=== PATIENT | male | born 1955 | race Caucasian/White ===

== ENCOUNTER 2016-04-11 19:14 | Emergency (ER) | payer MEDICARE ==
[2016-04-11 19:25] VITALS: BP 132/72
--- NOTE | 2016-04-11 20:01 | ED ---
Head Injury - HPI Summary HPI Summary: Patient presents to the ED after sustaining a mechanical fall on the ice about 12 hours ago and striking the back of his head on cement steps. He states he felt a goose-egg an hour after the fall and pain was 2/10. Denies pain currently. He denies LOC or visual disturbances. Denies dizziness, CAMARILLO, neck pain or blacking out. States that he went home and laid down and felt somewhat lethargic, but notes he has not slept well recently. He called his neurologist and they advised he come to ED. Denies other pain or symptoms. Denies memory loss. Denies back pain. - History Of Current Complaint Chief Complaint: EDHeadInjury Stated Complaint: FALL/HEAD INJURY Time Seen by Provider: 04/11/16 19:36 Hx Obtained From: Patient Mechanism Of Injury: Direct Blow, Fall From A Standing Position Onset/Duration: Started Hours Ago - 12 hours ago Onset of Pain: Immediate Severity Currently: None Severity Initially: Mild Pain Intensity: 0 Pain Scale Used: 0-10 Numeric Location of Head Injury: Parietal Location: Discrete At: - right parietal area Character: Other: - none currently Alleviating Factor(s): Rest - Risk Factors SDH Risk Factor: Male - Allergies/Home Medications Allergies/Adverse Reactions: Allergies Allergy/AdvReac Type Severity Reaction Status Date / Time No Known Allergies Allergy Verified 04/11/16 19:25 PMH/Surg Hx/FS Hx/Imm Hx Previously Healthy: Yes Infectious Disease History: No Infectious Disease History: Denies: Traveled Outside the [place] in Last 30 Days - Social History Occupation: Employed Full-time Lives: With Family Alcohol Use: None Hx Substance Use: No Substance Use Type: Reports: None Hx Tobacco Use: No Do You Chew or Dip Tobacco: No Household Exposure: No Review of Systems Constitutional: Negative Eyes: Negative ENT: Negative Cardiovascular: Negative Respiratory: Negative Positive: Other - slight contusion over right parietal area Neurological: Negative Psychological: Normal All Other Systems Reviewed And Are Negative: Yes Physical Exam Triage Information Reviewed: Yes Vital Signs On Initial Exam: Initial Vitals Temp Pulse Resp BP Pulse Ox 97.9 F 91 16 132/72 98 04/11/16 19:20 04/11/16 19:20 04/11/16 19:20 04/11/16 19:20 04/11/16 19:20 Vital Signs Reviewed: Yes Appearance: Positive: Well-Appearing, No Pain Distress, Well-Nourished Skin: Positive: Warm, Skin Color Reflects Adequate Perfusion Head/Face: Positive: Normal Head/Face Inspection, Scalp - small hematoma over right parietal area Eyes: Positive: Normal, EOMI, Conjunctiva Clear ENT: Positive: Hearing grossly normal, Pharynx normal, TMs normal Neck: Positive: Supple, Nontender Respiratory/Lung Sounds: Positive: Clear to Auscultation, Breath Sounds Present Cardiovascular: Positive: Normal Musculoskeletal: Positive: Normal, Strength/ROM Intact, Other - no cervical spine tenderness Neurological: Positive: Normal, Sensory/Motor Intact, CN Intact II-III, Reflexes Intact, Heel to Toe - normal, Finger to Nose - normal, Speech Normal Psychiatric: Positive: Normal AVPU Assessment: Alert Diagnostics - Vital Signs Vital Signs Temp Pulse Resp BP Pulse Ox 04/11/16 19:20 97.9 F 91 16 132/72 98 - Laboratory Lab Statement: Any lab studies that have been ordered have been reviewed, and results considered in the medical decision making process. Head Injury Course/Dx Course Of Treatment: Patient was assessed for neurological dysfunction. Cerebellar function intact. finger to nose, CN testing, reflexes all WNL. No LOC, dizziness, visual changes, CAMAR[place]O, midline spine tenderness, neck pain or memory loss. Slight lethargy. Most likely contusion, cannot r/o concussion. Patient given information and follow up with PCP or neurologist. - Diagnoses Differential Diagnosis/HQI/PQRI: Cerebral Contusion, Concussion Without LOC, Contusion, Hematoma Provider Diagnoses: Head injury, acute, without loss of consciousness Discharge - Discharge Plan Condition: Stable Disposition: HOME Patient Education Materials: Concussion (ED), Head Injury (ED) Referrals: Cherelle MORALES,Mauro Hopson [Primary Care Provider] - Additional Instructions: Take ibuprofen 600mg three times daily as needed for pain. If you experience in loss of consciousness, feeling like you are going to pass out or black out, if you feel dizzy or having worsening head pain, or if you are experiencing blurry vision or double vision, come back to ED. Neurologically you are stable. Please follow up with your PCP. Images - Images Head: 1 - 2X2 hematoma
== END 2016-04-11 20:34 | disposition home or self-care (01) ==
LOC: ED 19:14
DX: S09.90XA Unspecified injury of head, initial encounter (principal); W00.0XXA Fall on same level due to ice and snow, initial encounter; Y92.9 Unspecified place or not applicable
CPT/HCPCS: 99282